=== PATIENT | female | born 1975 | race Caucasian/White ===

== ENCOUNTER 2018-08-09 22:20 | Emergency (ER) | payer BC ==
[~2018-08-09] VITALS: Ht 167.6 cm; Wt 61.4 kg
[2018-08-09 22:28] VITALS: Ht 167.6 cm; Wt 61.4 kg
[2018-08-09] MEDS ORDERED: REMERON15 MG PO (22:30)
[2018-08-09] MEDS ORDERED: IMITREX100 MG PO (22:31)
[2018-08-09] MEDS ORDERED: SOMA350 MG PO (22:31)
[2018-08-10] MEDS ORDERED: ROBAXIN500 MG PO (00:07)
[2018-08-10] MEDS ORDERED: TORADOL10 MG PO (00:07)
[2018-08-10 00:23] VITALS: BP 139/96
== END 2018-08-10 00:24 | disposition home or self-care (01) ==
LOC: D.ER 22:20
DX: M54.16 Radiculopathy, lumbar region (principal); M51.26 Other intervertebral disc displacement, lumbar region

== ENCOUNTER 2018-12-29 20:04 | Inpatient (IN) | payer BC ==
[~2018-12-29] VITALS: Ht 167.6 cm; Wt 67.2 kg
[~2018-12-29 20:04] MED LIST: IMITREX100 MG PO; REMERON15 MG PO; ROBAXIN500 MG PO; SOMA350 MG PO; TORADOL10 MG PO
[2018-12-29] MEDS ORDERED: GABAPENTIN100 MG PO (20:26)
[2018-12-29] MEDS ORDERED: ULTRAM50 MG PO (20:27)
[2018-12-29 21:35] LABS: HCG SERUM NEGATIVE (NEGATIVE)
[2018-12-29 22:20] LABS: INR 1.03 (0.85-1.17)
[2018-12-29 22:24] LABS: ALBUMIN 3.2 g/dL (3.4-5.0); ALKALINE PHOSPHATASE 85 U/L (46-116); ALT (SGPT) 22 U/L (10-68); BILIRUBIN - TOTAL 0.35 mg/dL (0.2-1.3); CALC OSMOLALITY 276 mosm/kg (275-300); CALCIUM 8.6 mg/dL (8.5-10.1); CARBON DIOXIDE 25.4 mmol/L (21.0-32.0); CHLORIDE - SERUM 101 mmol/L (98-107); CREATININE - SERUM 0.6 mg/dL (0.6-1.3); POTASSIUM - SERUM 3.6 mmol/L (3.5-5.1); PROTEIN - SERUM 7.1 g/dL (6.4-8.2); SODIUM 137 mmol/L (136-145); UREA NITROGEN 20 mg/dL (7-18); eGFR NON AFRICAN AMERICAN > 90 mL/min (90-120)
[2018-12-29 22:26] LABS: BASOPHILS 0.3 % (0-2); EOSINOPHILS 0.9 % (0-7); HEMATOCRIT 36.5 % (36.0-48.0); HEMOGLOBIN 12.2 g/dL (12-16); IMMATURE GRANULOCYTES 0.4 % (0-5); LYMPHOCYTES 13.8 % (15-50); MCH 28.7 pg (26.0-34.0); MCHC 33.4 g/dL (31.0-37.0); MCV 85.9 fL (80.0-100.0); MEAN PLATELET VOLUME 10.3 fL (7.4-10.4); MONOCYTES 11.8 % (2-11); NEUTROPHILS 72.8 % (40-80); PLATELET COUNT 193 10x3/uL (130-400); RBC 4.25 10x6/uL (4.00-5.40); RDW 12.4 % (11.5-14.5)
[2018-12-29 22:27] LABS: GLUCOSE 104 mg/dL (74-106)
--- NOTE | 2018-12-29 23:00 | NUR ---
PT GIVEN SANDWICH AND SPRITE TO DRINK
--- NOTE | 2018-12-29 23:16 | NUR ---
PT ARRIVED VIA STRETCHER. NO DISTRESS NOTED. CALL LIGHT WITHIN REACH.
[2018-12-29] MEDS ORDERED: KLONOPIN0.5 MG PO (23:37)
[2018-12-29 23:38] VITALS: BP 120/80; BMI 23.5
--- NOTE | 2018-12-29 23:54 | NUR ---
COMMUNITY OUTREACH MANAGER ASSESSMENT, HISTORY AND HOME MED LIST COMPLETED. PT STATES PAIN TO BACK OF L CALF KEL 01/09. VSS. SR PER CM HR 96. BILAT FEET SLIGHTLY COOL TO TOUCH. PALPABLE BILAT PEDAL PULSES. BACK OF L LEG FROM MID THIGH TO MID CALF WARMER TO TOUCH. PT STATES WORSE PAIN BEHIND KNEE. IV TO LFA WITH NS AT 50CC/HR. SR UP X2, CALL LIGHT WITHIN REACH.
[2018-12-30 00:02] VITALS: BP 120/80
--- NOTE | 2018-12-30 00:43 | NUR ---
PT WATCHING TV. NO DISTRESS NOTED. SR UP X2, CALL LIGHT WITHIN REACH.
--- NOTE | 2018-12-30 02:22 | NUR ---
PT WATCHING TV. NO DISTRESS NOTED. SPOUSE AT BEDSIDE.
[2018-12-30 03:50] VITALS: BP 106/69
--- NOTE | 2018-12-30 04:19 | NUR ---
PT AWAKE; STATES LEG PAIN NOT INTENSE. DENIES ANY SOB. SPOUSE AT BEDSIDE.
[2018-12-30 06:13] LABS: BASOPHILS 0.2 % (0-2); EOSINOPHILS 1.7 % (0-7); HEMATOCRIT 34.2 % (36.0-48.0); HEMOGLOBIN 11.3 g/dL (12-16); IMMATURE GRANULOCYTES 0.3 % (0-5); LYMPHOCYTES 24.2 % (15-50); MCH 28.4 pg (26.0-34.0); MCV 85.9 fL (80.0-100.0); MEAN PLATELET VOLUME 9.8 fL (7.4-10.4); MONOCYTES 15.3 % (2-11); NEUTROPHILS 58.3 % (40-80); PLATELET COUNT 180 10x3/uL (130-400); RBC 3.98 10x6/uL (4.00-5.40); RDW 12.5 % (11.5-14.5)
[2018-12-30 06:17] LABS: WBC 5.9 10x3/uL (4.8-10.8)
--- NOTE | 2018-12-30 06:25 | NUR ---
VSS. CONTINUES TO HAVE C/O L LEG PAIN THOUGH PT STATES NOT SEVERE EARLIER. NEEDS MET; WILL CONTINUE TO MONITOR.
[2018-12-30 06:31] LABS: CALC OSMOLALITY 279 mosm/kg (275-300); CARBON DIOXIDE 30.7 mmol/L (21.0-32.0); CHLORIDE - SERUM 103 mmol/L (98-107); CREATININE - SERUM 0.7 mg/dL (0.6-1.3); GLUCOSE 95 mg/dL (74-106); POTASSIUM - SERUM 3.5 mmol/L (3.5-5.1); SODIUM 138 mmol/L (136-145); UREA NITROGEN 24 mg/dL (7-18); eGFR NON AFRICAN AMERICAN > 90 mL/min (90-120)
--- NOTE | 2018-12-30 07:00 | NUR ---
RECEIVED REPORT. ASSUMED CARE OF PATIENT. CALL LIGHT WITHIN REACH. PATIENT RESTING IN BED WITH COOL CLOTH ON FOREHEAD. PATIENT WITH MALE VISITOR AT BEDSIDE WITH EYES CLOSED. PATIENT DENIES NEEDS AT THIS TIME. NO DISTRESS. IV FLUIDS INFUSING ORDERED.
[2018-12-30 07:53] VITALS: BP 112/74
--- NOTE | 2018-12-30 09:00 | NUR ---
PAGED AT THIS TIME FOR PATIENT COMPLAINING OF SEVERE MIGRAINE. ANSWERING SERVICE GIVING THIS INSTRUMENT INSPECTOR A DIFFICULT TIME WANTING TO KNOW IF THIS CAN BE A ROUTINE PAGE OR STAT PAGE, SO THIS INSTRUMENT INSPECTOR HAD THE PHYSICIAN PAGED NOW THEY WOULD NOT DEFINE HOW LONG A ROUTINE PAGE WOULD TAKE FOR THE PHYSICIAN TO CALL BACK.
--- NOTE | 2018-12-30 09:16 | NUR ---
SPOKE WITH , NEW ORDER RECEIVED TO RESTART HOME MEDS. NO NEW ORDERS RECEIVED. WILL APPROACH PATIENT AND SEE WHAT SHE IS WILLING TO TRY TO TAKE FOR HER MIRGRAINE HEADACHE SINCE SHE ALREADY TOOK HOME IMITREX. THANKED .
--- NOTE | 2018-12-30 10:17 | NUR ---
ICE PACK PROVIDED DUE TO MIGRAINE. PATIENT REQUESTED MORPHINE. TOO EARLY TO ADMINISTER. ASSISTED PATIENT TO BSC TO URINATE AND BACK TO BED. AC ADJUSTED. PATIETN REQUESTING FAN. NO DISTRESS.
--- NOTE | 2018-12-30 10:41 | NUR ---
MEDICATED FOR SEVERE HEADACHE AT THIS TIME. NO DISTRESS. FAN PROVIDED UPON REQUEST. PATIENT RESTING IN BED WITH EYES CLOSED, ICE PACK ON FOREHEAD. CALL LIGHT WITHIN REACH.
[2018-12-30 11:17] VITALS: BP 113/75
--- NOTE | 2018-12-30 12:41 | NUR ---
NOTIFIED ER ADMISSIONS FOR CHANGE OF ADMITTING TO PCP PTS, PRIMARY. PER .
--- NOTE | 2018-12-30 12:42 | NUR ---
PATEINT COMPLAINING OF BEING NAUSEATED. UNABLE TO ADMINISTER ZOFRAN AT THIS TIME, TOO EARLY.
--- NOTE | 2018-12-30 14:42 | NUR ---
ASSISTED PATIENT OOB TO BS AND BACK TO BED. PATIENT COMPLAINS HER HEADACHE IS THE WORST IT HAS EVER BEEN. AWAITING SCAN AT THIS TIME. MEDICATED FOR PAIN AND NAUSEA AT THIS TIME. PATIENT REFUSED NEURONTIN DUE TO NAUSEA. CALL LIGHT WITHIN REACH.
[2018-12-30 15:59] VITALS: BP 132/55
--- NOTE | 2018-12-30 16:30 | NUR ---
PATIENT RETURNED FROM [facility]. IV FLUIDS RECONNECTED.
--- NOTE | 2018-12-30 16:40 | NUR ---
POPSICKLE PROVIDED. PATIENT HAS NOT EATEN OR HARDLY DRANK ANYTHING SINCE BEING ADMITTED TO THE UNIT. ENCOURAGED TO TRY THE POPSICKE. NEW ICEBAG PROVIDED. PATIENT LYING ON LEFT LATERAL SIDE. IV FLUIDS INFUSING. CALL LIGHT WITHIN REACH. MALE VISITOR AT BEDSIDE.
--- NOTE | 2018-12-30 18:15 | NUR ---
ASSISTED PATIENT OOB TO BSC AND BACK TO BED. PATIENT ANXIOUS AND STILL NAUSEATED, INCREASE ANXIETY, SLEEPY BUT UNABLE TO SLEEP. KLONOPIN ADMININISTERED PRN FOR ANXIETY. NO DISTRESS. CALL LIGHT WIHTIN REACH. ICE AND LEMON LITTLE TRAVERSE PROVIDED.
--- NOTE | 2018-12-30 18:57 | NUR ---
MEDICATED FOR PAIN AND NAUSEA AT THIS TIME. NO DISTRESS.
--- NOTE | 2018-12-30 19:43 | NUR ---
INITIAL ROUNDS COMPLETED AT 1920 HRS. PT RESTING WITH EYES CLOSED. RESP EVEN AND REGULAR. SR UP X2,CALL LIGHT WITHIN REACH.
[2018-12-30 20:15] VITALS: BP 129/78
--- NOTE | 2018-12-30 21:48 | NUR ---
ASSESSMENT COMPLETED AT 2009 HRS. VSS. PT STATES ALEXANDRE NOT INTENSE. ICE PACK ON FH. ALERT AND ORIENTED TO PERSON,PLACE AND TIME. GUTIERREZ. IV TO RWRIST WITH NS AT50CC/HR. IV PATENT. PALPABLE BILAT PEDAL PULSES. L THIGH WITH 1+ EDEMA. BACK OF L THIGH DOWN TO L CALF WARMER TO TOUCH AND TENDER. PM MEDS GIVEN. PT CURRENTLY RESTING WITH EYES CLOSED. RESP EVEN AND REGULAR. SR UP X2, CALL LIGHT WITHIN REACH AND SPOUSE AT BEDSIDE.
--- NOTE | 2018-12-31 00:21 | NUR ---
PT RESTING WITH EYES CLOSED. RESP EVEN AND REGULAR. SR UP X2, CALL LIGHT WITHIN REACH.
[2018-12-31 00:33] VITALS: BP 112/74
--- NOTE | 2018-12-31 02:13 | NUR ---
PT RESTING WITH EYES CLOSED. RESP EVEN AND REGULAR. SR UP X1, CALL LIGHT WITHIN REACH.
[2018-12-31 03:45] VITALS: BP 108/72
--- NOTE | 2018-12-31 05:03 | NUR ---
PT RESTING WITH EYES CLOSED. RESP EVEN AND REGULAR. SR UP X2, CALL LIGHT WITHIN REACH.
[2018-12-31 05:54] LABS: BASOPHILS 0.1 % (0-2); EOSINOPHILS 0.9 % (0-7); HEMOGLOBIN 10.8 g/dL (12-16); IMMATURE GRANULOCYTES 0.3 % (0-5); LYMPHOCYTES 11.6 % (15-50); MCHC 32.7 g/dL (31.0-37.0); MCV 85.5 fL (80.0-100.0); MEAN PLATELET VOLUME 10.2 fL (7.4-10.4); MONOCYTES 10.1 % (2-11); PLATELET COUNT 214 10x3/uL (130-400); RBC 3.86 10x6/uL (4.00-5.40); RDW 12.4 % (11.5-14.5)
[2018-12-31 05:58] LABS: WBC 7.7 10x3/uL (4.8-10.8)
[2018-12-31 06:04] LABS: CALC OSMOLALITY 282 mosm/kg (275-300); CALCIUM 8.7 mg/dL (8.5-10.1); CARBON DIOXIDE 28.9 mmol/L (21.0-32.0); CHLORIDE - SERUM 104 mmol/L (98-107); GLUCOSE 108 mg/dL (74-106); POTASSIUM - SERUM 3.1 mmol/L (3.5-5.1); SODIUM 140 mmol/L (136-145); UREA NITROGEN 20 mg/dL (7-18)
[2018-12-31 06:09] LABS: CREATININE - SERUM 0.5 mg/dL (0.6-1.3); eGFR NON AFRICAN AMERICAN > 90 mL/min (90-120)
--- NOTE | 2018-12-31 06:41 | NUR ---
VSS THROUGHOUT NIGHT. SR PER CM. PT STATES ZOFRAN AND MORPHIONE LESSEN HER PAIN AND NAUSEA. NEEDS MET;WILL CONTINUE TO MONITOR.
--- NOTE | 2018-12-31 07:20 | NUR ---
PT RESTING IN BED, REPORTS NAUSEA AND PAIN 10/10 AT THIS TIME TO LEFT LEG, BACK AND HEADACHE. SHE REPORTS SPASMS TO LOWER BACK WELL. EDUCATED NEXT TIME PAIN MEDICATION DUE AND WOULD BE ADMINISTERED PER MD ORDERS. PT VOICES UNDERSTANDING. IV TO LEFT WRIST WITH NS @ 50 ML/HR INFUSING VIA PUMP. SITE WITHOUT REDNESS OR EDEMA. DENIES FURTHER NEEDS AT THIS TIME. CL WITHIN REACH. ENCOURAGED TO CALL WITH NEEDS. CONTINUE POC
[2018-12-31 07:25] VITALS: BP 111/68
--- NOTE | 2018-12-31 07:42 | NUR ---
ENTERED PT ROOM TO ADMINISTER PAIN MEDICATION AND ZOFRAN PER PT REQUEST AND ACCORDING TO MD ORDERS. PT REPORTS "DR TRAMMELL LEFT AND SAID HE WAS GOING TO DISCONTINUE THE ZOFRAN AND PUT ME ON PHENERGAN." ORDERS REVIEWED AND STATED NEW ORDERS NOTED. ADMINISTERED MORPHINE PER MD ORDERS AND PHENERGAN PER MD ORDERS. PT REQUEST SPRITE AT THIS TIME. PT HAS ICE PACK TO FOREHEAD STATING HAVING MIGRAINE HEADACHE. WILL CONTINUE TO MONITOR AND ASSESS PAIN.
--- NOTE | 2018-12-31 09:10 | NUR ---
ENVIORONMENTAL SERVICES PRESENT TO CLEAN ROOM. PT REFUSES HOUSEKEEPING SERVICES THIS AM.
[2018-12-31 11:38] VITALS: BP 116/64
--- NOTE | 2018-12-31 14:28 | MORECARE ---
CASE MANAGEMENT DISCHARGE SUMMARY PATIENT: MADI BECKER UNIT: [id number] ADM DATE: 12/29/18 AGE: 43 : [birth year] SEX: F ROOM/BED: D.3340 AUTHOR: DARVIN PARIKH PHYSICIAN: REFERRING PHYSICIAN: NIMO DICKEY MD DATE OF SERVICE: 12/31/18 Discharge Plan Patient Name: MADI BECKER Facility: [facility]:[place] : 1975 Planned Disposition: Home Anticipated Discharge Date: Discharge Date: Expected LOS: Initial Reviewer: [email or web address] Initial Review Date: 12/31/2018 Generated: 12/31/18 3:27 pm Comments DCP- Discharge Planning Updated by [email or web address]: Soraida Carpenter on 12/31/18 1:[address] Patient Name: MADI BECKER Admission Status: ER Accout number: [id number] Admission Date: 12-29-2018 : 1975 Admission Diagnosis: Attending: NIMO DICKEY Current LOS: 2 Anticipated DC Date: Planned Disposition: Home Primary Insurance: [employer] [facility] Discharge Planning Comments: CM met with patient to complete initial dc planning assessment. CM educated patient on the CM role and verbal consent given by patient to complete assessment. CM verified patient's address, phone number, and emergency contact phone numbers. Patient lives at home alone and reports she is independent in her care. At discharge patient plans to return home and feels this is a safe discharge. CM discussed availability of home health, rehab services, and medical equipment. Patient denied known discharge needs at this time.. . CM will continue to follow and will assist as needed with dc plans/needs. Remelt Operator: Soraida Carpenter DCPIA - Discharge Planning Initial Assessment Updated by [email or web address]: Soraida Carpenter on 12/31/18 2:26 pm * Is the patient Alert and Oriented? Yes * How many steps to enter\exit or inside your home? * PCP Robyn phelps * [place] * Preadmission Environment Home with Family * ADLs Independent * Additional services required to return to the preadmission environment? No * Has this patient been hospitalized within the prior 30 days at any hospital? No Patient Name: MADI BECKER Page [phone] at 1428 All edits/amendments must be made on the electronic document DICTATION DATE: 12/31/181426 GENETIC COUNSELLOR: LOUANN 12/31/181426 RPT#: [id number] DC DATE: STATUS: ADM IN [facility] [address] [place] [address] END OF REPORT
[2018-12-31 14:45] VITALS: Ht 167.6 cm; Wt 67.2 kg
[2018-12-31 15:41] VITALS: BP 121/84
--- NOTE | 2018-12-31 19:31 | NUR ---
PATIENT LAYING IN BED. NO COMPLAINTS AT THIS TIME. PATIENT REQUESTED PAIN MEDICATION AT 2100. PATIENT EDUCATED ON PRN MEDICATIONS. NO DISTRESS NOTED. FAMILY AT BEDSIDE.
[2018-12-31 20:44] VITALS: BP 118/78
[2019-01-01 00:45] VITALS: BP 113/72
[2019-01-01 06:00] LABS: BASOPHILS 0.2 % (0-2); EOSINOPHILS 1.9 % (0-7); HEMATOCRIT 32.5 % (36.0-48.0); HEMOGLOBIN 10.7 g/dL (12-16); IMMATURE GRANULOCYTES 0.5 % (0-5); LYMPHOCYTES 20.2 % (15-50); MCH 27.9 pg (26.0-34.0); MCHC 32.9 g/dL (31.0-37.0); MCV 84.6 fL (80.0-100.0); MEAN PLATELET VOLUME 9.9 fL (7.4-10.4); MONOCYTES 12.5 % (2-11); NEUTROPHILS 64.7 % (40-80); PLATELET COUNT 236 10x3/uL (130-400); RBC 3.84 10x6/uL (4.00-5.40); RDW 12.3 % (11.5-14.5); WBC 6.3 10x3/uL (4.8-10.8)
[2019-01-01 06:19] LABS: CALC OSMOLALITY 278 mosm/kg (275-300); CARBON DIOXIDE 30.9 mmol/L (21.0-32.0); CHLORIDE - SERUM 103 mmol/L (98-107); CREATININE - SERUM 0.6 mg/dL (0.6-1.3); GLUCOSE 93 mg/dL (74-106); SODIUM 139 mmol/L (136-145); UREA NITROGEN 15 mg/dL (7-18); eGFR NON AFRICAN AMERICAN > 90 mL/min (90-120)
[2019-01-01 07:45] VITALS: BP 106/63
--- NOTE | 2019-01-01 08:40 | NUR ---
PT RESTING IN BED EATING BREAKFAST, DENIES ANY PAIN AT THIS TIME, WILL CONT TO FOLLOW POC
[2019-01-01 11:44] VITALS: BP 112/68
--- NOTE | 2019-01-01 13:40 | NUR ---
PT RESTING IN CHAIR EATING LUNCH. DENIES ANY NEEDS AT THIS TIME, WILL CONT TO FOLLOW POC
--- NOTE | 2019-01-01 16:56 | NUR ---
OT NOTE: PT COMPLETED BED MOB SUPINE TO SIT WITH SBA. THANK YOU, MAJOR ROSENTHAL
--- NOTE | 2019-01-01 19:00 | NUR ---
PATIENT LAYING IN BED. NO COMPLAINTS AT THIS TIME. NO DISTRESS NOTED.
--- NOTE | 2019-01-01 19:00 | NUR ---
PATIENT LAYING IN BED. NO COMPLAINTS AT THIS TIME. NO DISTRESS NOTED.
[2019-01-01 20:00] VITALS: BP 123/86
[2019-01-02] VITALS: BP 120/78
--- NOTE | 2019-01-02 00:20 | NUR ---
PATIENT LAYING IN BED. NO COMPLAINTS AT THIS TIME. NO DISTRESS NOTED.
[2019-01-02 04:30] VITALS: BP 108/72
[2019-01-02 06:58] LABS: BASOPHILS 0.2 % (0-2); EOSINOPHILS 2.8 % (0-7); HEMATOCRIT 32.7 % (36.0-48.0); HEMOGLOBIN 10.7 g/dL (12-16); IMMATURE GRANULOCYTES 0.5 % (0-5); LYMPHOCYTES 23.2 % (15-50); MCH 27.9 pg (26.0-34.0); MCHC 32.7 g/dL (31.0-37.0); MCV 85.2 fL (80.0-100.0); MEAN PLATELET VOLUME 9.9 fL (7.4-10.4); MONOCYTES 13.3 % (2-11); PLATELET COUNT 253 10x3/uL (130-400); RBC 3.84 10x6/uL (4.00-5.40); RDW 12.3 % (11.5-14.5); WBC 6.5 10x3/uL (4.8-10.8)
[2019-01-02 07:24] LABS: CALC OSMOLALITY 280 mosm/kg (275-300); CALCIUM 8.3 mg/dL (8.5-10.1); CARBON DIOXIDE 31.2 mmol/L (21.0-32.0); CHLORIDE - SERUM 103 mmol/L (98-107); CREATININE - SERUM 0.5 mg/dL (0.6-1.3); GLUCOSE 94 mg/dL (74-106); POTASSIUM - SERUM 3.7 mmol/L (3.5-5.1); SODIUM 140 mmol/L (136-145); UREA NITROGEN 17 mg/dL (7-18); eGFR NON AFRICAN AMERICAN > 90 mL/min (90-120)
--- NOTE | 2019-01-02 08:00 | NUR ---
AM ROUNDS COMPLETED. INTRODUCED MYSELF TO PT PRIMARY RN FOR TODAYS SHIFT. PT IS A&O LYING BACK IN BED RESTING QUIETLY. SHIFT ASSESSMENT COMPLETED. PT STATES SHE THINKS SHE IS GOING TO BE DISCHARGED TODAY BUT STILL CONCERNED ABOUT HER PAIN BUT STATES SHE FEELS LIKE SHE WILL DO OKAY WITH HER PAIN MEDICATION. PT ALSO CONCERNED WITH AMBULATION AND IS REQUESTING A WALKER, I WILL DISCUSS WITH CASE MANAGEMENT AND FIND OUT IF WE CAN GET HER ONE. PT VOICED THANKS AND DENIES ANY IMMEDIATE NEEDS AT THIS TIME. CL IN REACH, BED IN LOWEST, SIDE RAILS X2. WILL CTM.
[2019-01-02] MEDS ORDERED: ELIQUIS5 MG PO (08:20)
[2019-01-02] MEDS ORDERED: IMITREX100 MG PO (08:21)
[2019-01-02] MEDS ORDERED: HYDROCODON-ACE1 EA10 PO (08:22)
[2019-01-02 09:17] VITALS: BP 120/81
--- NOTE | 2019-01-02 09:56 | MORECARE ---
CASE MANAGEMENT DISCHARGE SUMMARY PATIENT: MADI BECKER UNIT: [id number] ADM DATE: 12/29/18 AGE: 43 : [birth year] SEX: F ROOM/BED: D.6716 AUTHOR: JL,DOC PHYSICIAN: REFERRING PHYSICIAN: NIMO DICKEY MD DATE OF SERVICE: 01/02/19 Discharge Plan Patient Name: MADI BECKER Facility: [facility]:[place] : 1975 Planned Disposition: Home Anticipated Discharge Date: 01/02/19 Discharge Date: Expected LOS: 4 Initial Reviewer: [email or web address] Initial Review Date: 12/31/2018 Generated: 01/02/19 10:56 am Comments DCP- Discharge Planning Updated by [email or web address]: Soraida Carpenter on 12/31/18 1:[address] Patient Name: MADI BECKER Admission Status: ER Accout number: [id number] Admission Date: 12-29-2018 : 1975 Admission Diagnosis: Attending: NIMO DICKEY Current LOS: 2 Anticipated DC Date: Planned Disposition: Home Primary Insurance: [employer] [facility] Discharge Planning Comments: CM met with patient to complete initial dc planning assessment. CM educated patient on the CM role and verbal consent given by patient to complete assessment. CM verified patient's address, phone number, and emergency contact phone numbers. Patient lives at home alone and reports she is independent in her care. At discharge patient plans to return home and feels this is a safe discharge. CM discussed availability of home health, rehab services, and medical equipment. Patient denied known discharge needs at this time.. . CM will continue to follow and will assist as needed with dc plans/needs. Customer Energy Specialist: Soraida Carpenter DCPIA - Discharge Planning Initial Assessment Updated by [email or web address]: Soraida Carpenter on 12/31/18 2:26 pm * Is the patient Alert and Oriented? Yes * How many steps to enter\exit or inside your home? * PCP Robyn phelps * [place] [facility] [place] * Preadmission Environment Home with Family * ADLs Independent * Additional services required to return to the preadmission environment? No * Has this patient been hospitalized within the prior 30 days at any hospital? No External Providers External Provider: [facility] Next Contact Date: 01/02/2019 Service Request Date: Service Type: Resolution: Reviewer: Comments: Last DP export: 12/31/18 1:27 pm Patient Name: MADI BECKER Page 98656 at 0956 All edits/amendments must be made on the electronic document DICTATION DATE: 01/02/19955 MATTRESS MAKER: LOUANN 01/02/1954 RPT#: [id number] DC DATE: STATUS: ADM IN [facility] [address] [place] [address] END OF REPORT
--- NOTE | 2019-01-02 10:05 | MORECARE ---
CASE MANAGEMENT DISCHARGE SUMMARY PATIENT: MADI BECKER UNIT: [id number] ADM DATE: 12/29/18 AGE: 43 : 79 SEX: F ROOM/BED: D.5855 AUTHOR: JL,DOC PHYSICIAN: REFERRING PHYSICIAN: NIMO DICKEY MD DATE OF SERVICE: 01/02/19 Discharge Plan Patient Name: MADI BECKER Facility: [facility]:[place] : 1975 Planned Disposition: Home Anticipated Discharge Date: 01/02/19 Discharge Date: Expected LOS: 4 Initial Reviewer: [email or web address] Initial Review Date: 12/31/2018 Generated: 01/02/19 11:05 am Comments DCP- Discharge Planning Updated by [email or web address]: Matheus Leggett on 01/02/19 9:[address] Patient Name: MADI BECKER Encounter No: [id number] : 1975 Primary Insurance: [employer] [facility] [place] Anticipated DC Date: 01-02-2019 Planned Disposition: Home DCP follow-up note: CM RECEIVED ORDER FOR WALKER, MET WITH PT IN ROOM TO DISCUSS DISCHARGE NEEDS AND PLANNING. CM DISCUSSED AVAILABILITY OF HOME HEALTH, REHAB SERVICES AND MEDICAL EQUIPMENT. PT HAS NO CHOICE ON EQUIPMENT PROVIDER AFTER BEING PROVIDED LIST. CHOICE SIGNED FOR NO PREFERENCE. PT DENIES FURTHER DISCHARGE NEEDS. FRIEND TO TRANSPORT HOME AT DISCHARGE. CM CALLED [phone], , SPOKE TO CODYND PROVIDED REFERRAL INFORMATION. CM FAXED REFERRAL TO [facility], . [facility] ADVISED THEY WILL DELIVER WALKER TO HOSPITAL THIS MORNING. 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 Matheus Leggett, CASE JACQUELYN DCP- Discharge Planning Updated by [email or web address]: Soraida Carpenter on 12/31/18 1:[address] Patient Name: MADI BECKER Admission Status: ER Accout number: [id number] Admission Date: 12-29-2018 : 1975 Admission Diagnosis: Attending: NIMO DICKEY Current LOS: 2 Anticipated DC Date: Planned Disposition: Home Primary Insurance: [employer] [facility] [place] [place] Discharge Planning Comments: CM met with patient to complete initial dc planning assessment. CM educated patient on the CM role and verbal consent given by patient to complete assessment. CM verified patient's address, phone number, and emergency contact phone numbers. Patient lives at home alone and reports she is independent in her care. At discharge patient plans to return home and feels this is a safe discharge. CM discussed availability of home health, rehab services, and medical equipment. Patient denied known discharge needs at this time.. . CM will continue to follow and will assist as needed with dc plans/needs. Associate Dean Of Students: Soraida Carpenter DCPIA - Discharge Planning Initial Assessment Updated by [email or web address]: Soraida Carpenter on 12/31/18 2:26 pm * Is the patient Alert and Oriented? Yes * How many steps to enter\exit or inside your home? * PCP Robyn phelps * [place] [facility] [place] * Preadmission Environment Home with Family * ADLs Independent * Additional services required to return to the preadmission environment? No * Has this patient been hospitalized within the prior 30 days at any hospital? No Coverage Notice Reviewer: [email or web address] Ivett Leggett Notice Issued Date-Time: 01/02/2019 9:40 Notice Type: Patient Choice Letter Notice Delivered To: Patient Relationship to Patient: Exterior Door Installer Name: Delivery Method: HAND - Hand Delivered Samira Days: Prior Verbal Notification: Recipient Understood Notice: Yes Recipient Signature: Yes Med Rec Note Co-signed by Attending: Coverage Notice Comment: NO MEDICAL EQUIPMENT PROVIDER CHOICE. Last DP export: 01/02/19 8:56 am Patient Name: MADI BECKER Page [phone] at 1005 All edits/amendments must be made on the electronic document DICTATION DATE: 01/02/19 1004 METAL ROASTER: LOUANN 01/02/19 1004 RPT#: [id number] DC DATE: STATUS: ADM IN [facility] [address] [place] [address] END OF REPORT
--- NOTE | 2019-01-02 11:02 | NUR ---
DISCHARGE TEACHING PROVIDED AND PAPERS SIGNED. PT VERBALIZED UNDERSTANDING AND DENIES ANY QUESTIONS OR CONCERNS. ALL BELONGINGS COLLECTED AND READY FOR PT. REMOVED TELEMETRY AND RETURNED TO [employer] [facility]. PTS SPOUSE AT BEDSIDE FOR TRANSPORATION. PT IS STILL WAITING ON HER WALKER FROM [employer] AND THEN WILL BE LEAVING. NO FURTHER NEEDS AT THIS TIME.
--- NOTE | 2019-01-02 11:44 | NUR ---
DALIA FROM [facility] NOW HERE. PT LEAVING WITH BELONGINGS AND FAMILY. NO CURRENT NEEDS.
[2019-01-04 19:06] LABS: FACTOR II DNA ANALYSIS Negative (())
== END 2019-01-02 11:45 | disposition home or self-care (01) | DRG 301 ==
LOC: D.ER 20:04 → D.M2 22:40
PROVIDERS: Family Medicine; Internal Medicine Hematology & Oncology; ADMIT Family Medicine; ATTEND Family Medicine
DX: I82.402 Acute embolism and thrombosis of unspecified deep veins of left lower extremity (principal); G43.909 Migraine, unspecified, not intractable, without status migrainosus; M51.16 Intervertebral disc disorders with radiculopathy, lumbar region

== ENCOUNTER → 2019-11-18 16:10 | Outpatient (CLI) | payer BC ==
[2018-12-31 14:45] VITALS: BMI 23.9
[~2019-11-18 16:10] MED LIST changes: +ELIQUIS5 MG PO; +GABAPENTIN100 MG PO; +HYDROCODON-ACE1 EA10 PO; +KLONOPIN0.5 MG PO; +ULTRAM50 MG PO
== END | disposition home or self-care (01) ==
LOC: D.US 16:10
PROVIDERS: ATTEND Clinical Nurse Specialist Family Health
DX: R22.42 Localized swelling, mass and lump, left lower limb (principal)

== ENCOUNTER → 2019-11-27 15:31 | Outpatient (CLI) | payer BC ==
[2018-12-31 14:45] VITALS: BMI 23.9
== END | disposition home or self-care (01) ==
LOC: D.MRI 15:31
PROVIDERS: ATTEND Clinical Nurse Specialist Family Health
DX: M25.562 Pain in left knee (principal)

== ENCOUNTER 2020-12-11 18:45 | Emergency (ER) | payer SELFPAY ==
[~2020-12-11] VITALS: Ht 167.6 cm; Wt 81.8 kg
[2020-12-11 18:49] VITALS: BP 147/105; Ht 167.6 cm; Wt 81.8 kg
[2020-12-11] MEDS ORDERED: CLARITIN 10 MG10 MG PO (19:09)
[2020-12-11] MEDS ORDERED: PREDNISONE50 MG PO (19:09)
[2020-12-11] MEDS ORDERED: FLUTICASONE PRO16 GM NASAL (19:09)
== END 2020-12-11 19:47 | disposition home or self-care (01) ==
LOC: D.ER 18:45
DX: J32.9 Chronic sinusitis, unspecified (principal); R51.9 Headache, unspecified; R42 Dizziness and giddiness